=== PATIENT | male | born 1955 | race African-American/Black ===

== ENCOUNTER 2020-08-22 08:59 | Outpatient (CLI) | payer MEDICARE ==
--- NOTE | 2020-08-22 10:56 | MRI ---
MR OF THE PELVIS WITH AND WITHOUT CONTRAST INDICATION: History of prostate cancer COMPARISON: None TECHNIQUE: Multiplanar, multisequence MR images were obtained of the pelvis with and without IV contr ast. 15 cc of MultiHance was utilized for the examination. The examination was reviewed on a separate [employer] 3-D workstation for multiplanar metric evaluation. FINDINGS: Prostate size: The prostate measured 3.1 x 2.7 x 2.8cm. 9.04 cc. Peripheral zone: No area of restricted diffusion is seen within the peripheral zone. There are diffus e regions of mild intermediate to low T2 signal intensity seen throughout the peripheral zone bilaterally, left greater than right. No focal suspicious lesion is evident. Central zone: No suspicious signal abnormality or focal lesion. Diffuse low T2 signal intensity is se en within the central zone of the prostate gland. Neural vasculature: No evidence of neurovascular invasion Regional lymphadenopathy: None Dynamic contrast enhancement: Negative. Osseous structures: No suspicious osseous lesion is identified. Additional findings: There is moderate to severe osteoarthrosis involving the right hip. There is mil d free fluid in the pelvis which is nonspecific. There is wall thickening involving the bladder some of which is related to incomplete distention. There is a fat-containing right inguinal hernia.. IMPRESSION: 1. PIRADS 2- Low (clinically significant cancer is unlikely to be present.) 2. Small prostate gland with diffuse low to intermediate signal intensity seen within the central zon e and peripheral zone of the prostate gland. Findings may reflect sequela of prior therapy. Recommend correlation patient's clinical history.
[2020-08-22] MEDS ORDERED: Magnevist 469MG/ML 20 ML VIAL ONE (14:16)
== END 2020-08-22 09:00 | disposition home or self-care (01) ==
LOC: TBSIIMAG 08:59
PROVIDERS: ATTEND Radiology Radiation Oncology
DX: C61 Malignant neoplasm of prostate (principal)
CPT/HCPCS: 72197; 82565